=== PATIENT | male | born 1960 ===

== ENCOUNTER 2019-01-15 22:12 | Emergency (ER) | payer SELFPAY ==
[~2019-01-15] VITALS: Ht 167.6 cm; Wt 75.0 kg
[2019-01-15 22:31] VITALS: BP 169/95; PULSE 71; RESP 18; Ht 167.6 cm; Wt 75.0 kg
== END 2019-01-16 01:50 | disposition left against medical advice (07) ==
LOC: FTE 22:12
DX: Z53.21 Procedure and treatment not carried out due to patient leaving prior to being seen by health care provider (principal)